=== PATIENT | male | born 1960 | race Caucasian/White ===

== ENCOUNTER → 2024-01-03 | Outpatient (CLI) | payer BC, SELFPAY ==
[2024-01-03 11:00] LABS: Alanine Aminotransferase 15 U/L (10-49); Albumin, Serum 4.8 gm/dL (3.4-4.8); Albumin/Globulin Ratio 1.7 (1.2-2.2); Alkaline Phosphatase 41 U/L (46-116); Anion Gap 7 (7-16); Aspartate Amino Transferase 19 U/L (0-34); BUN/Creatinine Ratio 17 Ratio (12-20); Bilirubin,Total 0.5 mg/dL (0.3-1.2); Blood Urea Nitrogen 15 mg/dL (9-23); Calcium 10.4 mg/dL (8.3-10.6); Calcium (Corrected) 10.4 mg/dL (8.5-10.1); Carbon Dioxide 26.9 mMol/L (20.0-31.0); Chloride 103 mMol/L (98-107); Creatinine (Component) 0.9 mg/dL (0.6-1.3); Globulin 2.8 gm/dL (2.3-3.5); Glucose 91 mg/dL (74-106); Osmolality,Calculated 274 (275-295); Sodium 137 mMol/L (136-145); Total Protein 7.6 gm/dL (5.7-8.2); eGFR > 60 See Note
[2024-01-03 11:03] LABS: Prostate Specific Antigen < 0.10 ng/mL (0-4.00)
[2024-01-10 06:51] LABS: Testosterone,Total* 15 ng/dL (250-1100)
== END | disposition home or self-care (01) ==
LOC: COPL 10:07
PROVIDERS: PCP Family Medicine; Referring Provider Internal Medicine Hematology & Oncology; Visit Provider Internal Medicine Hematology & Oncology
DX: C61 Malignant neoplasm of prostate (principal)
CPT/HCPCS: 36415; 80053; 84153; 84403

== ENCOUNTER → 2024-03-22 | Outpatient (CLI) | payer BC, SELFPAY ==
--- NOTE | 2024-03-22 16:30 | XR_ITS ---
Examination: CT chest, without intravenous contrast. Sagittal and coronal 2-D reconstructions. Exam date and time: March 22, 2024 1638 hours Comparison October 04, 2023 INDICATIONS: Coughing beginning 2 months ago, diagnosis prostate carcinoma April 2023 CTDI:vol (mGy) 15.3 DLP: (mGycm) 614 Technique: Multiple 3.0 mm axial sections of the chest to been obtained. Bone and lung density settings are obtained. Sagittal and coronal 2-D reconstructions have been obtained. Low dose protocols were performed. One or more of the following dose reduction techniques were used; automated exposure control, adjustment of the mA and/or KV according to patient size, use of iterative reconstruction technique. Findings: No thoracic aortic aneurysm dilatation Pulmonary artery segments are not enlarged No paratracheal tracheobronchial or bronchopulmonary adenopathy Calcified granuloma posterior left lung 13 mm No pneumonia or pulmonary edema No liver or splenic lesion Tiny gallstones No pancreatic mass Mild left hydronephrosis The liver is enlarged but only partly visualized Moderate osteopenia IMPRESSION: 13 mm calcified nodule left lung No mediastinal lymphadenopathy No noncalcified pulmonary nodules depicted Negative for osteoblastic metastatic disease
== END | disposition home or self-care (01) ==
LOC: CCTX 16:13
PROVIDERS: PCP Family Medicine; Referring Provider Internal Medicine Hematology & Oncology; Visit Provider Internal Medicine Hematology & Oncology
DX: R91.1 Solitary pulmonary nodule (principal); C61 Malignant neoplasm of prostate
CPT/HCPCS: 71250

== ENCOUNTER → 2024-04-05 | Outpatient (CLI) | payer BC, SELFPAY ==
[2024-04-05 13:05] LABS: Basophils # (Auto) 0.1 Thou/mm3 (0.0-0.2); Basophils % (Auto) 1 % (0-2.5); Eosinophils # (Auto) 0.3 Thou/mm3 (0.0-0.5); Eosinophils % (Auto) 6 % (0-10); Hematocrit 36.7 % (41.0-53.0); Hemoglobin 12.8 g/dL (13.5-16.0); Immature Granulocytes % (Auto) 1 % (0-0); Immature Granulocytes Auto 0.06 Thou/mm3 (0.00-0.00); Lymphocytes % (Auto) 19 % (10-50); Mean Corpuscular HGB Conc 34.9 g/dl (31.0-37.0); Mean Corpuscular Hemoglobin 29.8 pg (25.0-35.0); Mean Corpuscular Volume 86 fL (80-100); Monocytes # (Auto) 0.7 Thou/mm3 (0.0-0.8); Monocytes % (Auto) 12 % (0-12); Neutrophils # (Auto) 3.5 Thou/mm3 (1.8-7.7); Neutrophils % (Auto) 62 % (37-80); Nucleated Red Blood Cell % 0 /100 WBC (0); Platelet Count 272 Thou/mm3 (140-440); Red Blood Count 4.29 Miln/mm3 (4.50-5.90); White Blood Count 5.6 Thou/mm3 (3.8-10.6)
[2024-04-05 13:19] LABS: Prostate Specific Antigen < 0.10 ng/mL (0-4.00)
[2024-04-05 13:59] LABS: Alanine Aminotransferase 52 U/L (10-49); Albumin, Serum 4.2 gm/dL (3.4-4.8); Albumin/Globulin Ratio 1.9 (1.2-2.2); Alkaline Phosphatase 68 U/L (46-116); Anion Gap 7 (7-16); Aspartate Amino Transferase 31 U/L (0-34); BUN/Creatinine Ratio 21 Ratio (12-20); Bilirubin,Total 0.2 mg/dL (0.3-1.2); Blood Urea Nitrogen 17 mg/dL (9-23); Calcium 9.6 mg/dL (8.3-10.6); Calcium (Corrected) 9.6 mg/dL (8.5-10.1); Chloride 106 mMol/L (98-107); Creatinine (Component) 0.8 mg/dL (0.6-1.3); Globulin 2.2 gm/dL (2.3-3.5); Glucose 85 mg/dL (74-106); Osmolality,Calculated 283 (275-295); Potassium 4.8 mMol/L (3.4-5.1); Sodium 142 mMol/L (136-145); Total Protein 6.4 gm/dL (5.7-8.2); eGFR > 60 See Note
[2024-04-11 06:37] LABS: Testosterone, Free,Dialysis 0.9 pg/mL (35.0-155.0); Testosterone, Total, Dialysis 7 ng/dL (250-1100)
== END | disposition home or self-care (01) ==
LOC: COPL 12:20
PROVIDERS: PCP Family Medicine; Referring Provider Internal Medicine Hematology & Oncology; Visit Provider Internal Medicine Hematology & Oncology
DX: C61 Malignant neoplasm of prostate (principal)
CPT/HCPCS: 36415; 80053; 84153; 84402; 84403; 85025

== ENCOUNTER → 2024-09-28 | Outpatient (CLI) | payer BC, SELFPAY ==
--- NOTE | 2024-09-28 | XR_ITS ---
Examination: Duplex scan of the lower extremity, unilateral right complete Date and time of exam: September 28, 2024 1216 hours INDICATIONS: Right calf swelling and pain beginning 10 days ago Technique: Duplex scan of the extremity veins using B-mode/grayscale imaging and Doppler spectral analysis and color flow Attention is directed to internal echogenicity, compression and augmentation involving these veins, color flow assessment, spectral analysis Findings: Major deep venous structures in the extremity demonstrate normal course and caliber. There is no evidence of deep vein thrombosis. Normal color flow and spectral analysis Impression: Negative for DVT..
== END | disposition home or self-care (01) ==
PROVIDERS: PCP Family Medicine; Referring Provider Nurse Practitioner Family; Visit Provider Nurse Practitioner Family
DX: R22.41 Localized swelling, mass and lump, right lower limb (principal)
CPT/HCPCS: 93971